=== PATIENT | female | born 1990 | race Hispanic/Latino ===

== ENCOUNTER 2017-11-14 09:35 | Emergency (ER) | payer BC ==
[2017-11-14 09:38] VITALS: BMI 33.8
--- NOTE | 2017-11-14 09:57 | ED PDOC ---
Lower Extremity Pain/Injury Time Seen by Provider: 11/14/17 09:41 Chief Complaint (Provider): Toe injury History Per: Patient History/Exam Limitations: no limitations Onset/Duration Of Symptoms: Days (yesterday) Current Symptoms Are (Timing): Still Present Additional History Per: Patient Additional Complaint(s): Pt. stubbed her R great toe when going down the stairs. Her nail was almost off. She took it off completely. She then put hydrogen peroxide, neosporin, and bandages on it. She continued with her day and got a pedicure. Here today as the toe has a gauze that is stuck on the wound and hurts when trying to remove. No foot or ankle pain. No injury elsewhere. Past Medical History Reviewed: Nursing Documentation, Vital Signs Vital Signs: Last Vital Signs Temp 98 F 11/14/17 09:38 Pulse 91 H 11/14/17 09:38 Resp 20 11/14/17 09:38 BP 113/77 11/14/17 09:38 Pulse Ox 97 11/14/17 09:38 - Medical History Other PMH: thyroid removed - Surgical History Other surgeries: thyroid removed - Family History Family History: States: Unknown Family Hx - Living Arrangements Living Arrangements: With Family - Social History Current smoker - smoking cessation education provided: No - Home Medications Home Medications: Ambulatory Orders Medication Instructions Recorded Ibuprofen [Motrin] 600 mg PO TID 7 Days tab 11/14/17 - Allergies Allergies/Adverse Reactions: Allergies Allergy/AdvReac Type Severity Reaction Status Date / Time Penicillins Allergy Verified 11/14/17 09:49 Review of Systems Constitutional: Positive for: Weakness Cardiovascular: Negative for: Chest Pain Respiratory: Negative for: Shortness of Breath Musculoskeletal: Positive for: Foot Pain. Negative for: Neck Pain, Shoulder Pain, Arm Pain, Hand Pain, Leg Pain Skin: Negative for: Rash Neurological: Negative for: Weakness, Numbness Physical Exam - Reviewed Nursing Documentation Reviewed: Yes Vital Signs Reviewed: Yes - Physical Exam Neck: Positive for: Normal, Painless ROM Cardiovascular/Chest: Positive for: Regular Rate, Rhythm Respiratory: Positive for: CNT, Normal Breath Sounds Pulses-Dorsalis Pedis (R): 2+ Pulses-Post. Tibialis (R): 2+ Back: Positive for: Normal Inspection. Negative for: L CVA Tenderness, R CVA Tenderness Extremity: Positive for: Tenderness (R great toe with no toe nail; tender area; no gross lacerations on nail bed; has full ROM on toe,) Neurologic/Psych: Positive for: Alert - ECG O2 Sat by Pulse Oximetry: 97 Pulse Ox Interpretation: Normal - Progress ED Course And Treament: 1002: Does not want any pain medicine. Podiatry aware and will see pt. in the ER. 1026: Stable. AAOx3. Pain free. Podiatry put on dressing. Fu with podiatry in 3-4 days. Disposition - Clinical Impression Clinical Impression: Injury of nail - Patient ED Disposition Is Patient to be Admitted: No Counseled Patient/Family Regarding: Studies Performed, Diagnosis, Need For Followup, Rx Given - Disposition Referrals: Freddy Gomez DPM [Staff Provider] - 11/17/17 Disposition: Routine/Home Disposition Time: 10:29 Condition: STABLE Additional Instructions: Return if not better in 3 days. Prescriptions: Ibuprofen [Motrin] 600 mg PO TID 7 Days tab Instructions: Nail Avulsion Forms: [facility] ([place]), [facility] ED School/Work Excuse
[2017-11-14] MEDS ORDERED: Tdap Vaccine 0.5 ml Vial (10-64 yrs) IM ONE ×2 (10:22→10:45)
[2017-11-14 10:56] VITALS: BP 110/70; PULSE 86; RESP 16; TEMP 98; O2SAT 98
--- NOTE | 2017-11-14 11:28 | CP.PCM.PN ---
Subjective - Date & Time of Evaluation Date of Evaluation: 11/14/17 Time of Evaluation: 10:53 - Subjective Subjective: Podiatry consult notes for attending Adamaris Miranda 27 y/o F patient with PMH of hypothyroidism seen and evaluated in the ED for pain in her Right great toe. Patient states that she stub her right great toe nail while she was going down stairs. Patient states that her toe mostly came out. She states that she peels off the rest of the nail and put hydrogen peroxide, neosporin, and bandages on it. She states that she had pain in her toe by that time but overnight she didn't have any pain. Patient states that today morning her toe dressing peel off and there was part of the gauze adherent to the the and causes so much pain when trying to remove it. Patient states that she can't recall having tetanus shot in the last 10 years. Patient emily any recent F/N/V/C or SOB. Patient denies any other pedal complaint at this time. PMH: Hypothyroidism. PSH: Thyroidectomy Allergies: Penicillin. Social Hx: Smokes sporadically, using ETOH occasionally. Denies illicit drug use. Objective - Vital Signs/Intake and Output Vital Signs (last 24 hours): Temp Pulse Resp BP Pulse Ox 98 F 91 H 20 113/77 97 11/14/17 09:38 11/14/17 09:38 11/14/17 09:38 11/14/17 09:38 11/14/17 10:30 - Constitutional Appears: Well, Non-toxic, No Acute Distress - Head Exam Head Exam: ATRAUMATIC, NORMOCEPHALIC - Extremities Exam Additional comments: Left LE focused exam: Vasc: DP/PT 2/4 b/l. Cap refill< 3sec in all digits. Temp gradient warm to cool from proximal to distal. Neuro: Gross and protective sensations are intact b/l. Derm: 1st toe nail was avulsed and removed. the nail bed is intact, granular with no lacerations. No signs of active infection. MSK: Pain on palpating the left big toe at the tip and nail bed. Muscle power intact 5/5 in all groups. - Neurological Exam Neurological Exam: Alert, Awake, Oriented x3 - Psychiatric Exam Psychiatric exam: Normal Affect, Normal Mood Assessment and Plan - Assessment and Plan (Free Text) Assessment: 27 y/o F patient seen and evaluated in the ED for pain left big toe and avulsion of the left 1st big toe nail. Plan: Patient seen and evaluated in the ED. Plan discussed in details with attending Dr. Bailon X-ray left foot reviewed; There might be a compression fracture of the distal phalanx of the 1st toe. Discussed with the patient the X-ray results. Sterile saline used to remove the old dressing from the left 1st toe nail bed. 1st left toe nail bed dressed using bacitracin, telfa, DSD and estelle bandage. Patient instructed to dress her 1st toe nail bed daily for the next week using bacitracin, telfa, DSD and estelle bandage. Patient instructed to soak her left foot every day in Epson salt. Patient instructed to keep the dressing clean/ dry and intact. Patient received a tetanus shot in the ED. Patient expressed verbal understanding. Patient to F/U in Dr. Bailon office.
--- NOTE | 2017-11-14 13:30 | RAD ---
PROCEDURE: Radiographs of the right great toe. TECHNIQUE:: AP radiograph of the right foot, with oblique and lateral view of the right great toe. COMPARISON: None. FINDINGS: BONES: No acute fracture or destructive bony lesion identified. JOINTS: No dislocation or subluxation. SOFT TISSUES: Normal. OTHER FINDINGS: None. IMPRESSION: Unremarkable right great toe radiographs.
== END 2017-11-14 10:55 | disposition home or self-care (01) ==
LOC: H.ER 09:35
DX: S91.201A Unspecified open wound of right great toe with damage to nail, initial encounter (principal); W22.8XXA Striking against or struck by other objects, initial encounter; Y92.89 Other specified places as the place of occurrence of the external cause; E03.9 Hypothyroidism, unspecified; Z88.0 Allergy status to penicillin